=== PATIENT | female | born 1970 | race Two or more races ===

== ENCOUNTER 2018-11-09 03:01 | Emergency (ER) | payer BC ==
[~2018-11-09] VITALS: Ht 165.1 cm; Wt 117.9 kg
[2018-11-09] MEDS ORDERED: KETO10TA2 PO (06:12)
== END 2018-11-09 06:34 | disposition home or self-care (01) ==
LOC: ER 03:01
DX: S80.02XA Contusion of left knee, initial encounter (principal); W01.198A Fall on same level from slipping, tripping and stumbling with subsequent striking against other object, initial encounter; Y93.89 Activity, other specified; Y92.098 Other place in other non-institutional residence as the place of occurrence of the external cause; Y99.8 Other external cause status